=== PATIENT | female | born 1960 | race African-American/Black ===

== ENCOUNTER 2017-10-17 21:20 | Emergency (ER) | payer OTHER ==
[~2017-10-17] VITALS: Ht 157.5 cm; Wt 63.5 kg
[2017-10-17 21:59] LABS: BASOPHILS % 2.4 % (0.0-2.0); EOSINOPHILS % 2.7 % (0.0-5.0); HEMATOCRIT. 37.8 % (36.0-48.0); LYMPHOCYTES % 41.8 % (20.0-50.0); MEAN CORPUSCULAR HEMOGLOBIN 29.3 pg (28.0-32.0); MEAN PLATELET VOLUME 7.9 fl (7.4-10.4); MONOCYTES % 8.3 % (2.0-8.0); NEUTROPHILS % 44.8 % (40.0-76.0); PLATELET 388 x1000/uL (130-400); RED BLOOD CELL COUNT 4.45 mill/uL (4.2-5.4); RED CELL DISTRIBUTION WIDTH 15.1 % (11.6-14.6)
[2017-10-17 22:02] LABS: CHLORIDE 108 mEq/L (98-107)
[2017-10-18] MEDS ORDERED: KETOROLAC 60MG/2ML VIAL IM ONE (02:00)
[2017-10-18] MEDS ORDERED: PREDNISONE 20MG TABLET PO ONE (02:00)
[2017-10-18] MEDS ORDERED: ONDANSETRON 4MG ODT PO ONE (02:00)
[2017-10-18 02:12] LABS: MONOTEST NEGATIVE (NEGATIVE)
[2017-10-18 02:34] LABS: CLARITY URINE CLEAR (CLEAR); COLOR URINE YELLOW (YELLOW); KETONES URINE NEGATIVE (NEGATIVE); LEUKOCYTE ESTERASE URINE 1+ (NEGATIVE); NITRITE URINE NEGATIVE (NEGATIVE); OCCULT BLOOD URINE NEGATIVE (NEGATIVE); PROTEIN URINE NEGATIVE (NEGATIVE); SPECIFIC GRAVITY URINE 1.024 (1.005-1.030)
[2017-10-18 04:31] VITALS: BP 118/71
== END 2017-10-18 04:34 | disposition home or self-care (01) ==
LOC: ER 21:20
DX: J02.8 Acute pharyngitis due to other specified organisms (principal); B97.89 Other viral agents as the cause of diseases classified elsewhere; J06.9 Acute upper respiratory infection, unspecified; I10 Essential (primary) hypertension; E03.9 Hypothyroidism, unspecified; Z90.710 Acquired absence of both cervix and uterus; Z90.49 Acquired absence of other specified parts of digestive tract; Z98.890 Other specified postprocedural states
CPT/HCPCS: 36415; 71045; 80053; 81003; 85025; 86308; 87070; 87430; 96372; 99285; J1885; J7512; Q0162; Z7610

== ENCOUNTER 2018-04-25 19:13 | Emergency (ER) | payer OTHER ==
[~2018-04-25] VITALS: Ht 154.9 cm; Wt 68.0 kg
[2018-04-26] MEDS ORDERED: SODIUM CHLORIDE 0.9% 1,000 ML IV ONE (01:59)
[2018-04-26] MEDS ORDERED: ONDANSETRON HCL 4MG/2ML INJ IV STA (01:59)
[2018-04-26] MEDS ORDERED: MORPHINE SULFATE 4 MG/ML CPJ (NOT FOR IM USE) IV STA (01:59)
[2018-04-26 03:11] LABS: CHLORIDE 107 mEq/L (98-107)
[2018-04-26 03:13] LABS: HEMATOCRIT. 40.4 % (36.0-48.0); HEMOGLOBIN. 14.4 g/dL (12.0-16.0); LYMPHOCYTES % 43.8 % (20.0-50.0); MEAN CORPUSCULAR HEMOGLOBIN 30.3 pg (28.0-32.0); MEAN CORPUSCULAR VOLUME 85.2 fL (81.0-99.0); MEAN PLATELET VOLUME 8.4 fl (7.4-10.4); NEUTROPHILS % 42.7 % (40.0-76.0); PLATELET 344 x1000/uL (130-400); RED BLOOD CELL COUNT 4.74 mill/uL (4.2-5.4); RED CELL DISTRIBUTION WIDTH 15.6 % (11.6-14.6)
[2018-04-26 03:14] LABS: EOSINOPHILS % 0.7 % (0.0-5.0); MONOCYTES % 10.8 % (2.0-8.0)
[2018-04-26] MEDS ORDERED: ONDANSETRON HCL 4MG/2ML INJ IV ONE (06:00)
[2018-04-26] MEDS ORDERED: FENTANYL CITRATE/PF 50MCG/ML 2ML VIAL IV ONE (06:00)
[2018-04-26] MEDS ORDERED: MIDAZOLAM HCL 2 MG/2 ML VIAL IV ONE (06:00)
[2018-04-26] MEDS ORDERED: LIDOCAINE HCL/PF 1% 10 MG/ML 5ML VIAL IJ ONE (06:15)
[2018-04-26] MEDS ORDERED: PROPOFOL 10MG/ML 100ML 100 ML IV ONE (06:45)
[2018-04-26] MEDS ORDERED: IOHEXOL-300 100 ML BOTTLE ONE (07:17)
[2018-04-26] MEDS ORDERED: MORPHINE SULFATE 4 MG/ML CPJ (NOT FOR IM USE) IV ONE (08:15)
[2018-04-26 11:24] VITALS: BP 157/103
== END 2018-04-26 11:36 | disposition short-term general hospital (02) ==
LOC: ER 19:13
DX: S27.0XXA Traumatic pneumothorax, initial encounter (principal); S20.211A Contusion of right front wall of thorax, initial encounter; J98.11 Atelectasis; K76.89 Other specified diseases of liver; K44.9 Diaphragmatic hernia without obstruction or gangrene; Z88.6 Allergy status to analgesic agent; Z90.710 Acquired absence of both cervix and uterus; Z98.84 Bariatric surgery status; W01.190A Fall on same level from slipping, tripping and stumbling with subsequent striking against furniture, initial encounter; Y93.89 Activity, other specified; Y92.018 Other place in single-family (private) house as the place of occurrence of the external cause
CPT/HCPCS: 32551; 36415; 71045; 71260; 74177; 80048; 85025; 86850; 86900; 86901; 96374; 96375; 96376; 99152; 99153; 99291; J2250; J2270; J2405; J2704; J3010; J3490; J7030; Q9967

== ENCOUNTER 2018-08-29 15:30 | Emergency (ER) | payer OTHER ==
[~2018-08-29] VITALS: Ht 167.6 cm; Wt 68.0 kg
[2018-08-29] MEDS ORDERED: DIAZEPAM 2 MG TABLET PO ONE (17:30)
[2018-08-29 19:25] LABS: CLARITY URINE CLEAR (CLEAR); COLOR URINE YELLOW (YELLOW); KETONES URINE 1+ (NEGATIVE); LEUKOCYTE ESTERASE URINE NEGATIVE (NEGATIVE); NITRITE URINE NEGATIVE (NEGATIVE); OCCULT BLOOD URINE NEGATIVE (NEGATIVE); PROTEIN URINE NEGATIVE (NEGATIVE); SPECIFIC GRAVITY URINE 1.023 (1.005-1.030)
[2018-08-29 19:42] VITALS: BP 128/88
[2018-08-29] MEDS ORDERED: ACETAMINOPHEN WITH CODEINE 300/30MG TABLET PO ONE (19:45)
== END 2018-08-29 19:44 | disposition home or self-care (01) ==
LOC: ER 15:52
DX: M54.5 Low back pain (principal); M25.512 Pain in left shoulder; M54.2 Cervicalgia; I10 Essential (primary) hypertension; E05.90 Thyrotoxicosis, unspecified without thyrotoxic crisis or storm; Z88.6 Allergy status to analgesic agent
CPT/HCPCS: 72100; 73030; 99284

== ENCOUNTER 2020-04-08 20:22 | Emergency (ER) | payer BC, OTHER ==
[~2020-04-08] VITALS: Ht 154.9 cm; Wt 73.0 kg
[2020-04-09] MEDS ORDERED: KETOROLAC 30MG/ML VIAL IV STA (00:26)
[2020-04-09] MEDS ORDERED: SODIUM CHLORIDE 0.9% 500 ML IV ONE (00:30)
[2020-04-09 01:10] VITALS: BP 138/91
== END 2020-04-09 01:12 | disposition left against medical advice (07) ==
LOC: ER 20:22
DX: R07.89 Other chest pain (principal); I10 Essential (primary) hypertension; E03.9 Hypothyroidism, unspecified
CPT/HCPCS: 71045; 93005; 96361; 96374; 99283; J1885; J7040